=== PATIENT | female | born 1970 | race Hispanic/Latino ===

== ENCOUNTER 2021-12-24 13:42 | Observation (INO) | payer BC ==
[~2021-12-24] VITALS: Ht 157.5 cm; Wt 80.7 kg
[2021-12-24] MEDS ORDERED: KETOROLAC TROMETHAMINE 30 MG/ML VIAL IV STA (14:25)
[2021-12-24 14:34] LABS: BASOPHILS % 0.4 % (0.0-1.0); EOSINOPHILS # (AUTO) 0.1 (0.0-0.4); EOSINOPHILS % 0.6 % (0.0-6.0); HEMATOCRIT 45.1 % (34.2-44.1); HEMOGLOBIN 15.3 g/dL (12.0-16.0); LYMPHOCYTES # (AUTO) 0.7 (1.0-3.2); LYMPHOCYTES % 6.3 % (18.0-39.1); MEAN CORPUSCULAR HEMOGLOBIN 30.5 pg (28-32); MEAN CORPUSCULAR HGB CONC 33.9 g/dL (31-35); MONOCYTES % 9.6 % (4.4-11.3); NEUTROPHILS # (AUTO) 8.9 (2.1-6.9); NEUTROPHILS % 82.4 % (38.7-80.0); PLATELET COUNT 309 x10e3/uL (140-360); RED BLOOD COUNT 5.01 x10e6/uL (3.6-5.1); RED CELL DISTRIBUTION WIDTH 12.4 % (11.7-14.4)
[2021-12-24 14:51] LABS: ALBUMIN 4.1 g/dL (3.5-5.0); ANION GAP 15.8 mmol/L (8-16); CALCIUM 8.8 mg/dL (8.4-10.2); CREATININE, SERUM 0.91 mg/dL (0.57-1.11); POTASSIUM 3.8 mmol/L (3.5-5.1)
[2021-12-24] MEDS: SODIUM CHLORIDE 0.9% 1000ML 1,000 ML IV SCH ×2 (15:04→22:39)
[2021-12-24] MEDS ORDERED: DEXAMETHASONE SOD PHOS INJ 4 MG/ML SDV IV ONE (15:45)
[2021-12-24] MEDS ORDERED: ACETAMINOPHEN 325 MG TAB PO ONE (16:00)
[2021-12-24 16:18] LABS: CLARITY,URINE CLEAR (CLEAR); COLOR,URINE YELLOW (YELLOW); KETONES,URINE NEGATIVE (NEGATIVE); LEUKOCYTE ESTERASE ,URINE TRACE (NEGATIVE); NITRITE,URINE NEGATIVE (NEGATIVE); PROTEIN,URINE DIPSTICK NEGATIVE (NEGATIVE); URINE UROBILINOGEN 0.2 mg/dL (0.2 - 1)
[2021-12-24 16:27] LABS: BACTERIA,URINE MODERATE /HPF; EPITHELIAL CELLS,URINE MODERATE /LPF; WBC,URINE (MAN) 0-5 /HPF (0-5)
[2021-12-24] MEDS ORDERED: ONDANSETRON HCL INJ 2MG/ML 2ML 2 MG/ML VIAL IV PRN (16:30)
[2021-12-24] MEDS ORDERED: HYDROCODONE/APAP 5MG-325MG TAB PO PRN (16:30)
[2021-12-24] MEDS ORDERED: ALBUTEROL SULFATE HFA 8GM INHALATION AEROSOL INH PRN (16:30)
[2021-12-24] MEDS ORDERED: ZOLPIDEM TARTRATE 5 MG TAB PO PRN (16:30)
[2021-12-24 18:10] VITALS: BP 97/81
[2021-12-24 18:20] VITALS: BP 97/81
[2021-12-24] MEDS ORDERED: Morphine 2mg Syringe 2 MG/ML SYR IV PRN (20:00)
[2021-12-24 20:09] VITALS: BP 114/65
[2021-12-24] MEDS ORDERED: ACETAMINOPHEN 325 MG TAB PO PRN (20:30)
[2021-12-25] VITALS (7 sets, daily range): BP systolic 114–128; BP diastolic 63–94
[2021-12-25] MEDS ORDERED: IOPAMIDOL 370 MG/ML 100 ML INFUS..BTL INJ ONE (05:59)
[2021-12-25] MEDS: SODIUM CHLORIDE 0.9% 1000ML 1,000 ML IV SCH ×2 (06:00→16:03)
[2021-12-25 06:01] LABS: BASOPHILS % 0.1 % (0.0-1.0); HEMATOCRIT 40.6 % (34.2-44.1); HEMOGLOBIN 13.3 g/dL (12.0-16.0); LYMPHOCYTES # (AUTO) 1.1 (1.0-3.2); LYMPHOCYTES % 14.4 % (18.0-39.1); MEAN CORPUSCULAR HEMOGLOBIN 30.2 pg (28-32); MEAN CORPUSCULAR HGB CONC 32.8 g/dL (31-35); MEAN CORPUSCULAR VOLUME 92.3 fL (81-99); MONOCYTES # (AUTO) 0.2 (0.2-0.8); MONOCYTES % 2.3 % (4.4-11.3); NEUTROPHILS # (AUTO) 6.4 (2.1-6.9); NEUTROPHILS % 82.8 % (38.7-80.0); PLATELET COUNT 300 x10e3/uL (140-360); RED CELL DISTRIBUTION WIDTH 12.6 % (11.7-14.4)
[2021-12-25 06:18] LABS: ANION GAP 11.9 mmol/L (8-16); CALCIUM 7.9 mg/dL (8.4-10.2); CREATININE, SERUM 0.74 mg/dL (0.57-1.11); POTASSIUM 3.9 mmol/L (3.5-5.1)
[2021-12-25] MEDS ORDERED: ZITHROMAX250 MG PO (11:29)
[2021-12-25] MEDS ORDERED: PULMICORT FLEXHA1 EA IH (11:29)
[2021-12-25] MEDS ORDERED: PREDNISONE10 MG PO (11:29)
[2021-12-25] MEDS ORDERED: PROAIR HFA INH8.5 GM INH (11:29)
[2021-12-25] MEDS ORDERED: MOTRIN200 MG PO (11:29)
[2021-12-25] MEDS ORDERED: ASPIRIN EC81 MG PO (11:31)
[2021-12-25] MEDS ORDERED: PAXLOVID CO-PA1 EACH PO (11:40)
[2021-12-25] MEDS ORDERED: KETOROLAC TROMETHAMINE 30 MG/ML VIAL IM PRN (11:45)
[2021-12-25] MEDS ORDERED: BEBTELOVIMAB 175 MG INJ IV ONE (13:00)
[2021-12-25] MEDS ORDERED: ENOXAPARIN SOD INJ 40 MG/0.4 ML SYR SC SCH (17:00)
[2021-12-26] MEDS ORDERED: AZITHROMYCIN 250 MG TAB PO SCH (09:00)
== END 2021-12-25 19:03 | disposition home or self-care (01) ==
LOC: ER 13:50 → ERHOLD 15:41 → MED/SURG2 18:00
PROVIDERS: ADMIT Internal Medicine; ATTEND Internal Medicine
DX: U07.1 COVID-19 (principal); R07.89 Other chest pain; I10 Essential (primary) hypertension; J45.909 Unspecified asthma, uncomplicated; I73.9 Peripheral vascular disease, unspecified; Z90.710 Acquired absence of both cervix and uterus
CPT/HCPCS: 36415 ×2; 71045; 71260; 80048; 80053; 81001; 83605; 84443; 84484; 85025 ×2; 87040; 87086; 93005; 93306; 94799 ×2; 99284; G0378 ×2; J0456 ×2; J1100; J1650; J1885; J2270; J7030 ×2; J7050 ×2; Q9967; U0002

== ENCOUNTER → 2022-01-19 | Outpatient (CLI) | payer BC ==
[~2022-01-19] MED LIST: ASPIRIN EC81 MG PO; IOPAMIDOL 370 MG/ML 100 ML INFUS..BTL INJ ONE; METOPROLOL TARTRATE 25 MG TAB ONE; METOPROLOL TARTRATE INJ 1 MG/ML VIAL ONE; MOTRIN200 MG PO; NITROGLYCERIN 0.4 MG SUBL ONE; PAXLOVID CO-PA1 EACH PO; PREDNISONE10 MG PO; PROAIR HFA INH8.5 GM INH; PULMICORT FLEXHA1 EA IH; SODIUM CHLORIDE 0.9% 100 ML ONE; ZITHROMAX250 MG PO
[2022-01-19 09:13] LABS: CREATININE, SERUM 0.85 mg/dL (0.57-1.11)
== END ==
LOC: CT 08:23
PROVIDERS: ATTEND Internal Medicine Endocrinology, Diabetes & Metabolism
DX: I20.9 Angina pectoris, unspecified (principal)
CPT/HCPCS: 36415; 75574; 82565; 84520; J7050; Q9967